=== PATIENT | male | born 1955 | race Hispanic/Latino ===

== ENCOUNTER 2019-06-13 13:39 | Inpatient (IN) | payer OTHER ==
[~2019-06-13] VITALS: Ht 180.3 cm; Wt 83.7 kg
[2019-06-13 14:03] LABS: BASOPHILS % (AUTO) 0.9 % (0.0-5.0); EOSINOPHILS % (AUTO) 0.8 % (0.0-8.0); HEMATOCRIT 34.1 % (42-54); LYMPHOCYTES % (AUTO) 14.8 % (21.0-51.0); MEAN CORPUSCULAR HEMOGLOBIN 36.8 pg (27.0-33.0); MEAN CORPUSCULAR HGB CONC 35.5 g/dL (32.0-36.0); MEAN CORPUSCULAR VOLUME 103.7 fL (79-99); MONOCYTES % (AUTO) 7.2 % (3.0-13.0); NEUTROPHILS % (AUTO) 76.3 % (40.0-77.0); PLATELET COUNT (AUTO) 291 K/uL (130-400); RED BLOOD CELL COUNT(AUTO) 3.29 MIL/uL (4.50-6.20); RED CELL DISTRIBUTION WIDTH 13.7 % (11.0-15.5); WHITE BLOOD COUNT (AUTO) 9.7 K/uL (4.8-10.8)
[2019-06-13 14:13] LABS: ALBUMIN 2.6 g/dL (3.5-5.0); BILIRUBIN,DIRECT 0.9 mg/dL (0.0-0.3); BILIRUBIN,TOTAL 1.8 mg/dL (0.2-1.0); CREATININE 3.6 mg/dL (0.5-1.5); POTASSIUM 4.3 mmol/L (3.5-5.1); TOTAL PROTEIN, SERUM 8.4 g/dL (6.0-8.3)
[2019-06-13 14:18] LABS: B-TYPE NATRIURETIC PEPTIDE 47 pg/mL (0-100)
[2019-06-13 15:18] LABS: INR 1.23 (0.85-1.15); PARTIAL THROMBOPLASTIN TIME 29.8 SEC (26.3-35.5); PROTHROMBIN TIME 12.9 SEC (9.6-11.6)
[2019-06-13] MEDS ORDERED: 1/2 NORMAL SALINE 1,000 ML IV SCH (15:30)
[2019-06-13] MEDS ORDERED: HYDROCORTISONE 25 MG SUPPOSITORY PR SCH (15:30)
[2019-06-13] MEDS: PANTOPRAZOLE 40 MG/VIAL IVP SCH (16:00)
[2019-06-13] MEDS ORDERED: HYDROCORTISONE 25 MG SUPPOSITORY PR ONE (16:08)
[2019-06-13] MEDS ORDERED: OCTREOTIDE ACETATE 500 MCG in SODIUM CHLORIDE 0.9% 97.5 ML IV PRN (18:30)
[2019-06-13] MEDS ORDERED: SODIUM CHLORIDE 0.9% 1000ML 1,000 ML IV ONE (19:31)
[2019-06-13 20:19] LABS: BASOPHILS % (AUTO) 1.2 % (0.0-5.0); HEMATOCRIT 32.9 % (42-54); MEAN CORPUSCULAR HEMOGLOBIN 35.9 pg (27.0-33.0); MEAN CORPUSCULAR HGB CONC 34.5 g/dL (32.0-36.0); MONOCYTES % (AUTO) 7.9 % (3.0-13.0); NEUTROPHILS % (AUTO) 71.9 % (40.0-77.0); PLATELET COUNT (AUTO) 265 K/uL (130-400); RED BLOOD CELL COUNT(AUTO) 3.16 MIL/uL (4.50-6.20); RED CELL DISTRIBUTION WIDTH 13.6 % (11.0-15.5); WHITE BLOOD COUNT (AUTO) 9.3 K/uL (4.8-10.8)
[2019-06-13 20:32] LABS: CREATININE 3.6 mg/dL (0.5-1.5); POTASSIUM 4.1 mmol/L (3.5-5.1)
[2019-06-13 20:33] LABS: INR 1.25 (0.85-1.15); PARTIAL THROMBOPLASTIN TIME 29.7 SEC (26.3-35.5); PROTHROMBIN TIME 13.1 SEC (9.6-11.6)
[2019-06-13 21:15] VITALS: BP 125/79
[2019-06-13] MEDS ORDERED: ONDANSETRON HCL 4 MG/2 ML VIAL IVP PRN (21:30)
[2019-06-13] MEDS ORDERED: MORPHINE SULFATE 4 MG/1ML SYG IV PRN (21:30)
[2019-06-13 23:00] VITALS: BP 111/69
[2019-06-14] VITALS (29 sets, daily range): BP systolic 10–134; BP diastolic 35–85
[2019-06-14] MEDS ORDERED: LISI10TA7 PO (02:05)
[2019-06-14] MEDS ORDERED: SPIR50TA5 PO (02:05)
[2019-06-14] MEDS ORDERED: GLIP5TAB11 PO (02:05)
[2019-06-14] MEDS ORDERED: MAGN400T51 PO (02:05)
[2019-06-14] MEDS ORDERED: FURO20TA4 PO (02:05)
[2019-06-14] MEDS ORDERED: HYDR25TA PO (02:05)
[2019-06-14 02:34] LABS: HEMATOCRIT 29.7 % (42-54)
[2019-06-14 02:46] LABS: APPEARANCE,URINE Clear (CLEAR); BILIRUBIN,URINE Negative (NEGATIVE); COLOR,URINE Dark Yellow (YELLOW); GLUCOSE, URINE (UA) Negative (NEGATIVE); KETONES,URINE Trace mg/dL (NEGATIVE); LEUKOCYTE ESTERASE ,URINE Trace (NEGATIVE); NITRATE,URINE Negative (NEGATIVE); OCCULT BLOOD,URINE Negative (NEGATIVE); PROTEIN,URINE Negative (NEGATIVE)
[2019-06-14 03:06] LABS: BACTERIA,URINE Rare /HPF (None Seen); RBC,URINE 0-1 /HPF (0-1)
[2019-06-14] MEDS ORDERED: ALBUMIN (HUMAN) 25% 100 ML IV ONE (06:30)
[2019-06-14] MEDS ORDERED: GLYCOPYRROLATE 0.2 MG/ML 5 ML VIAL ONE (06:33)
[2019-06-14] MEDS ORDERED: LIDOCAINE HCL-MPF 2% 5ML VIAL ONE (06:33)
[2019-06-14] MEDS ORDERED: PROPOFOL 10 MG/ML 20ML VIAL IV ONE (06:33)
[2019-06-14] MEDS ORDERED: PHENYLEPHRINE HCL 10 MG/ML 1ML VIAL IV ONE (06:43)
[2019-06-14 08:32] LABS: HEMATOCRIT 31.2 % (42-54)
[2019-06-14] MEDS ORDERED: ALBUMIN (HUMAN) 25% 100 ML IV SCH (09:45)
--- NOTE | 2019-06-14 09:58 | NUR ---
NOTIFIED DR QUINONEZ THAT THERE IS NO H&P AT PRESENT AND THAT PT CANNOT HAVE SCHEDULED PARACENTESIS UNTIL IT HAS BEEN DICTATED. HE STATED "OK WILL DO"
[2019-06-14] MEDS: MIDODRINE HCL 5 MG TABLET PO PRN (10:36)
[2019-06-14] MEDS: PANTOPRAZOLE 40 MG/VIAL IVP SCH ×2 (10:36→14:39)
[2019-06-14] MEDS ORDERED: FOLIC ACID/VITAMIN B COMP W-C 1 MG CAP/TAB PO SCH (13:30)
[2019-06-14] MEDS ORDERED: ALBUMIN (HUMAN) 25% 50 ML IV SCH (14:00)
[2019-06-14 14:43] LABS: HEMATOCRIT 31.1 % (42-54)
[2019-06-14 15:12] LABS: APPEARANCE,URINE Clear (CLEAR); BILIRUBIN,URINE Negative (NEGATIVE); COLOR,URINE Yellow (YELLOW); GLUCOSE, URINE (UA) Negative (NEGATIVE); KETONES,URINE Trace mg/dL (NEGATIVE); LEUKOCYTE ESTERASE ,URINE Small (NEGATIVE); NITRATE,URINE Negative (NEGATIVE); OCCULT BLOOD,URINE Negative (NEGATIVE); PROTEIN,URINE Negative (NEGATIVE)
--- NOTE | 2019-06-14 15:20 | NUR ---
U/S GD PARACENTESIS PROCEDURE PERFORMED BY DR. MAYO. PUNCTURE SITE RIGHT LOWER QUADRANT OF ABDOMEN AND PATIENT TOLERATED PROCEDURE WELL. TOTAL REMOVED 12.5 LITERS OF CLOUDY YELLOW FLUID. ALBUMIN PROTOCOL ORDERED. SPECIMEN SENT TO LAB. END OF PROCEDURE AT 1550. CATHETER REMOVED AND DRESSING APPLIED. NO BLEEDING NOTED. CALLED REPORT TO PAMELA PHAN RN. PATIENT TRANSFERRED TO ROOM 310 VIA W/C STABLE AT 1610. AAO X3 WITH NO C/O PAIN
[2019-06-14 15:30] LABS: BACTERIA,URINE Few /HPF (None Seen); RBC,URINE 0-1 /HPF (0-1); SQUAMOUS EPITHELIAL CELL,UR Rare /HPF (0-2)
[2019-06-14] MEDS ORDERED: ALBUMIN (HUMAN) 25% 400 ML IV SCH (17:21)
[2019-06-14 17:41] LABS: APPEARANCE BODY FLUID CLEAR (CLEAR); BODY FLUID RBC 219 /cu. mm.; BODY FLUID WBC 76 /cu. mm.; COLOR,BODY FLUID YELLOW (LT YELLOW); SPECIMENTYPE,BODY FLUID ASCITES; TOTAL VOLUME,BODY FLUID 12500 mL
[2019-06-14 18:08] LABS: BF LYMPHOCYTE 57 %; BF MESOTHELIAL 2 %; BF MONOCYTE 5 %; BF OTHER CELLS 2
[2019-06-14 20:15] LABS: HEMATOCRIT 29.7 % (42-54)
[2019-06-15] VITALS (9 sets, daily range): BP systolic 84–124; BP diastolic 50–68
[2019-06-15] MEDS: MIDODRINE HCL 5 MG TABLET PO PRN (04:57)
[2019-06-15 05:52] LABS: HEMATOCRIT 29.6 % (42-54); MEAN CORPUSCULAR HEMOGLOBIN 35.9 pg (27.0-33.0); MEAN CORPUSCULAR HGB CONC 34.3 g/dL (32.0-36.0); MEAN CORPUSCULAR VOLUME 104.8 fL (79-99); PLATELET COUNT (AUTO) 200 K/uL (130-400); RED BLOOD CELL COUNT(AUTO) 2.82 MIL/uL (4.50-6.20); RED CELL DISTRIBUTION WIDTH 13.9 % (11.0-15.5); WHITE BLOOD COUNT (AUTO) 7.2 K/uL (4.8-10.8)
[2019-06-15 06:19] LABS: ALBUMIN 3.2 g/dL (3.5-5.0); BILIRUBIN,TOTAL 2.4 mg/dL (0.2-1.0); CREATININE 3.2 mg/dL (0.5-1.5); POTASSIUM 4.6 mmol/L (3.5-5.1); TOTAL PROTEIN, SERUM 7.1 g/dL (6.0-8.3)
[2019-06-15 07:23] LABS: BASOPHILS % (MANUAL) 2 % (0-2); EOSINOPHILS % (MANUAL) 2 % (1-6); LYMPHOCYTES % (MANUAL) 18 % (22-44); MAN.DIFF COMMENT-IMPRESSION MANUAL DIFFERENTIAL; MONOCYTES % (MANUAL) 6 % (2-9); PLATELET MORPHOLOGY COMMENT ADEQUATE; SEGMENTED NEUTROPHILS % 72 % (40-70)
[2019-06-15 08:47] LABS: HEMATOCRIT 27.9 % (42-54)
[2019-06-15] MEDS: PANTOPRAZOLE 40 MG/VIAL IVP SCH (11:25)
[2019-06-15] MEDS: FOLIC ACID/VITAMIN B COMP W-C 1 MG CAP/TAB PO SCH (11:25)
--- NOTE | 2019-06-15 16:00 | NUR ---
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 LIVES W HIS SISTER, HAS A WKR AND AND SHOWER BENCH, IS PENDING SSI, GOES TO SEE DR. QUINONEZ WHEN HE CAN [facility] PENDING Addendum: 06/16/19 at 1826 by LINWOOD ROQUE RN CM Amended: Links added.
[2019-06-15 20:49] LABS: HEMATOCRIT 30.1 % (42-54)
[2019-06-16 04:00] VITALS: BP 107/62
[2019-06-16 05:59] LABS: BASOPHILS % (AUTO) 0.8 % (0.0-5.0); EOSINOPHILS % (AUTO) 2.6 % (0.0-8.0); HEMATOCRIT 32.1 % (42-54); LYMPHOCYTES % (AUTO) 15.5 % (21.0-51.0); MEAN CORPUSCULAR HGB CONC 34.4 g/dL (32.0-36.0); MEAN CORPUSCULAR VOLUME 104.8 fL (79-99); MONOCYTES % (AUTO) 11.3 % (3.0-13.0); NEUTROPHILS % (AUTO) 69.8 % (40.0-77.0); PLATELET COUNT (AUTO) 217 K/uL (130-400); RED BLOOD CELL COUNT(AUTO) 3.07 MIL/uL (4.50-6.20); RED CELL DISTRIBUTION WIDTH 13.9 % (11.0-15.5); WHITE BLOOD COUNT (AUTO) 7.4 K/uL (4.8-10.8)
[2019-06-16 06:18] LABS: ALBUMIN 3.1 g/dL (3.5-5.0); BILIRUBIN,TOTAL 2.3 mg/dL (0.2-1.0); CREATININE 3.5 mg/dL (0.5-1.5); POTASSIUM 4.2 mmol/L (3.5-5.1); TOTAL PROTEIN, SERUM 7.4 g/dL (6.0-8.3)
[2019-06-16 08:00] VITALS: BP 97/50
[2019-06-16] MEDS ORDERED: GLIPIZIDE 5 MG TABLET PO SCH (09:00)
[2019-06-16] MEDS ORDERED: HYDROCHLOROTHIAZIDE 25 MG TABLET PO SCH (09:00)
[2019-06-16] MEDS ORDERED: SPIRONOLACTONE 25 MG TAB PO SCH (09:00)
[2019-06-16] MEDS ORDERED: MAGNESIUM OXIDE 400 MG TABLET PO SCH (09:00)
[2019-06-16] MEDS: FOLIC ACID/VITAMIN B COMP W-C 1 MG CAP/TAB PO SCH (09:24)
[2019-06-16 11:00] VITALS: BP 85/49
--- NOTE | 2019-06-16 15:32 | NUR ---
PT CONTINUES TO WAIT FOR HIS SISTER TO HAVE DISCHARGE INSTRUCTIONS GIVEN PER PT/FAMILY REQUEST. PT REPORTS HIS SISTER WILL BE PICKING HIM UP HE HAS ALREADY CALLED HER. WILL CONTINUE TO MONITOR.
[2019-06-17] MEDS ORDERED: PANTOPRAZOLE SODIUM 40 MG TABLET.DR PO SCH (08:18)
== END 2019-06-16 16:20 | disposition home or self-care (01) | DRG 377 ==
LOC: EDH 13:39 → EDHIP 13:40 → 3BH 20:50
PROVIDERS: ADMIT Internal Medicine; ATTEND Internal Medicine
PROC: 0W9G3ZZ Drainage of Peritoneal Cavity, Percutaneous Approach (ICD-10-PCS; principal; 2019-06-14)
PROC: 0DJ08ZZ Inspection of Upper Intestinal Tract, Via Natural or Artificial Opening Endoscopic (ICD-10-PCS; 2019-06-14)
DX: K29.71 Gastritis, unspecified, with bleeding (principal); K76.7 Hepatorenal syndrome; R18.8 Other ascites; N17.9 Acute kidney failure, unspecified; E87.1 Hypo-osmolality and hyponatremia; R64 Cachexia; K74.60 Unspecified cirrhosis of liver; I85.00 Esophageal varices without bleeding; E88.09 Other disorders of plasma-protein metabolism, not elsewhere classified; I95.9 Hypotension, unspecified; J44.9 Chronic obstructive pulmonary disease, unspecified; K31.89 Other diseases of stomach and duodenum; D64.9 Anemia, unspecified; E11.21 Type 2 diabetes mellitus with diabetic nephropathy; I10 Essential (primary) hypertension; Z68.25 Body mass index [BMI] 25.0-25.9, adult
CPT/HCPCS: 36415; 43235; 49083; 71045; 71250; 74150; 76705; 80048; 80053; 80076; 81001; 82042; 82270; 82550; 82948; 83880; 83935; 84157; 84300; 84484; 85014; 85018; 85025; 85610; 85730; 86850; 86900; 86901; 87071; 87205; 88108; 88305; 89051; 93005; 96365; 97039; C9113; G0378; J2354; J2370; J2405; J2704; J3490; J7030; P9046

== ENCOUNTER 2019-06-20 22:43 | Inpatient (IN) | payer OTHER ==
[~2019-06-20] VITALS: Ht 172.7 cm; Wt 100.0 kg
[~2019-06-20 22:43] MED LIST: GLIP5TAB11 PO; HYDR25TA PO; MAGN400T51 PO; ROCURONIUM BROMIDE 10MG/1ML 5ML VL IV ONE
[2019-06-20 23:08] LABS: BASOPHILS % (AUTO) 1.1 % (0.0-5.0); EOSINOPHILS % (AUTO) 0.4 % (0.0-8.0); HEMATOCRIT 34.9 % (42-54); MEAN CORPUSCULAR HEMOGLOBIN 35.6 pg (27.0-33.0); MEAN CORPUSCULAR HGB CONC 34.7 g/dL (32.0-36.0); MEAN CORPUSCULAR VOLUME 102.7 fL (79-99); MONOCYTES % (AUTO) 7.7 % (3.0-13.0); NEUTROPHILS % (AUTO) 80.8 % (40.0-77.0); NUCLEATED RED BLOOD CELLS 0.1 % (0.0-0.19); PLATELET COUNT (AUTO) 289 K/uL (130-400); RED CELL DISTRIBUTION WIDTH 14.2 % (11.0-15.5); WHITE BLOOD COUNT (AUTO) 12.9 K/uL (4.8-10.8)
[2019-06-20 23:26] LABS: ALBUMIN 2.9 g/dL (3.5-5.0); BILIRUBIN,DIRECT 1.3 mg/dL (0.0-0.3); BILIRUBIN,TOTAL 2.7 mg/dL (0.2-1.0); INR 1.49 (0.85-1.15); PARTIAL THROMBOPLASTIN TIME 32.1 SEC (26.3-35.5); POTASSIUM 5.6 mmol/L (3.5-5.1); PROTHROMBIN TIME 15.4 SEC (9.6-11.6); TOTAL PROTEIN, SERUM 8.1 g/dL (6.0-8.3)
[2019-06-20 23:31] LABS: APPEARANCE,URINE Cloudy (CLEAR); BILIRUBIN,URINE Moderate (NEGATIVE); COLOR,URINE Dark Yellow (YELLOW); GLUCOSE, URINE (UA) Negative (NEGATIVE); KETONES,URINE Trace mg/dL (NEGATIVE); LEUKOCYTE ESTERASE ,URINE Small (NEGATIVE); NITRATE,URINE Positive (NEGATIVE); OCCULT BLOOD,URINE Negative (NEGATIVE); PROTEIN,URINE POS 1+ mg/dL (NEGATIVE)
[2019-06-20 23:33] LABS: B-TYPE NATRIURETIC PEPTIDE 26 pg/mL (0-100)
[2019-06-20 23:40] LABS: AMORPHOUS SEDIMENT,UR Moderate /LPF (None Seen); BACTERIA,URINE Rare /HPF (None Seen); MUCUS,URINE Moderate LPF (None Seen); RBC,URINE 0-1 /HPF (0-1); SQUAMOUS EPITHELIAL CELL,UR Few /HPF (0-2)
[2019-06-21] VITALS (26 sets, daily range): BP systolic 81–120; BP diastolic 42–75
[2019-06-21 00:49] LABS: ABG OXYGEN SATURATION 89.9 % (95.0-99.0); BASE EXCESS,VENOUS BLOOD GAS -6.1 (-2.0-3.0); HCO3,VENOUS BLOOD GAS 14.7 (21.0-28.0); PCO2,VENOUS BLOOD GAS 20 (35-48); PH,VENOUS BLOOD GAS 7.482 (7.350-7.450)
[2019-06-21] MEDS ORDERED: LACTULOSE 20 GM/30 ML UDCUP ONE (01:26)
[2019-06-21] MEDS ORDERED: LEVOFLOXACIN 750 MG/D5W 150 ML 150 ML ONE (02:30)
[2019-06-21] MEDS: LACTULOSE 20 GM/30 ML UDCUP PO SCH ×4 (04:00→17:37)
[2019-06-21] MEDS ORDERED: SODIUM CHLORIDE 0.9% 1000ML 1,000 ML IV ONE ×3 (04:49→06:00)
[2019-06-21 05:06] LABS: ABG BASE EXCESS -8.4 mmol/L (-2.0-3.0); ABG HCO3 11.4 mmol/L (21.0-28.0); ABG OXYGEN SATURATION 98.5 % (95.0-99.0); ABG PCO2 < 17 mmHg (35-48)
[2019-06-21 05:12] LABS: CREATININE 8.3 mg/dL (0.5-1.5); POTASSIUM 6.2 mmol/L (3.5-5.1)
[2019-06-21] MEDS ORDERED: SODIUM BICARB 50MEQ 50ML VIAL ONE ×3 (05:18→05:40)
[2019-06-21] MEDS ORDERED: ZOSYN 3.375GM+NS 50ML 50 ML IV ONE (05:37)
[2019-06-21] MEDS ORDERED: MIDAZOLAM HCL 5 MG/ML 2ML VIAL IV ONE (05:38)
[2019-06-21] MEDS ORDERED: ONDANSETRON HCL 4 MG/2 ML VIAL ONE (05:42)
[2019-06-21] MEDS ORDERED: ALBUTEROL SULFATE 0.083% 2.5 MG/3 ML INH IH ONE (06:04)
[2019-06-21] MEDS ORDERED: SODIUM POLYSTYRENE SULFONATE 15 GM/60 ML ML ONE (06:09)
[2019-06-21] MEDS ORDERED: CALCIUM GLUCONATE 1 GM/10 ML VIAL IV ONE (06:09)
[2019-06-21] MEDS ORDERED: INSULIN HUMULIN R 100 UNIT/ML 3ML ONE (06:50)
[2019-06-21] MEDS ORDERED: DEXTROSE 50%-WATER 50 ML DISP.SYRIN IV ONE (06:50)
[2019-06-21 07:59] LABS: BASOPHILS % (AUTO) 0.2 % (0.0-5.0); HEMATOCRIT 30.4 % (42-54); LYMPHOCYTES % (AUTO) 5.8 % (21.0-51.0); MEAN CORPUSCULAR HEMOGLOBIN 36.1 pg (27.0-33.0); MEAN CORPUSCULAR HGB CONC 34.8 g/dL (32.0-36.0); MEAN CORPUSCULAR VOLUME 103.6 fL (79-99); PLATELET COUNT (AUTO) 184 K/uL (130-400); RED BLOOD CELL COUNT(AUTO) 2.93 MIL/uL (4.50-6.20); RED CELL DISTRIBUTION WIDTH 14.3 % (11.0-15.5); WHITE BLOOD COUNT (AUTO) 10.9 K/uL (4.8-10.8)
[2019-06-21 08:07] LABS: ABG BASE EXCESS -5.3 mmol/L (-2.0-3.0); ABG HCO3 17.2 mmol/L (21.0-28.0); ABG OXYGEN SATURATION 96.7 % (95.0-99.0); ABG PCO2 27 mmHg (35-48)
[2019-06-21 08:10] LABS: POTASSIUM 4.8 mmol/L (3.5-5.1)
[2019-06-21 08:11] LABS: CREATININE 7.6 mg/dL (0.5-1.5); MAGNESIUM 2.4 mg/dL (1.80-2.40)
[2019-06-21] MEDS ORDERED: PROPOFOL 1000 MG/100 ML 100 ML IV ONE (08:44)
[2019-06-21] MEDS ORDERED: SODIUM BICARB 50MEQ 50ML VIAL IV SCH (09:15)
[2019-06-21] MEDS ORDERED: PROPOFOL 1000 MG/100 ML IV PRN (09:15)
[2019-06-21] MEDS: SYRING IVP SCH ×2 (09:34→22:59)
[2019-06-21] MEDS: SODIUM BICARB 8.4% IVP SCH ×2 (09:34→22:59)
[2019-06-21] MEDS: SODIUM CHLORIDE 0.9% IVP SCH ×2 (09:34→22:59)
[2019-06-21] MEDS ORDERED: SPIR50TA5 PO (09:53)
[2019-06-21] MEDS ORDERED: PANT40TA PO (09:53)
[2019-06-21] MEDS ORDERED: MIDO10TA PO (09:53)
[2019-06-21] MEDS: CEFTRIAXONE SODIUM 1 GM IVP SCH (09:57)
[2019-06-21] MEDS: SODIUM CHLORIDE 0.9% 1000ML 1,000 ML IV SCH ×2 (09:58→11:07)
[2019-06-21] MEDS: PROPOFOL 1000 MG/100 ML 100 ML IV PRN ×2 (15:00→22:34)
[2019-06-21] MEDS: INSULIN HUMULIN R 100 UNIT/ML 3ML SQ SCH (17:17)
--- NOTE | 2019-06-21 17:37 | NUR ---
cm note met with patients sister kaylynn and sister gisele, pt intubated, pt resides with kaylynn, pt normally able to ambulate with cane or walker, no dme. no services.bathes self. pt goes to see Dr wasserman private pay and pays for meds. did provide nati info, and to followup with Nito. dcp back home. if pt stabilizes. Addendum: 06/21/19 at 1739 by LEANA MORA CM Amended: Links added.
[2019-06-21] MEDS: MIDODRINE HCL 5 MG TABLET PO SCH (22:40)
[2019-06-21] MEDS: ZOSYN 3.375GM+NS 50ML 50 ML IV SCH (22:40)
[2019-06-22] VITALS (34 sets, daily range): BP systolic 100–136; BP diastolic 36–67
[2019-06-22 03:14] LABS: HEMATOCRIT 27.3 % (42-54); MEAN CORPUSCULAR HGB CONC 37.2 g/dL (32.0-36.0); NUCLEATED RED BLOOD CELLS 0.1 % (0.0-0.19); PLATELET COUNT (AUTO) 198 K/uL (130-400); RED BLOOD CELL COUNT(AUTO) 2.67 MIL/uL (4.50-6.20); RED CELL DISTRIBUTION WIDTH 13.8 % (11.0-15.5); WHITE BLOOD COUNT (AUTO) 13.5 K/uL (4.8-10.8)
[2019-06-22 03:22] LABS: CREATININE 6.9 mg/dL (0.5-1.5); MAGNESIUM 2.2 mg/dL (1.80-2.40); PHOSPHORUS 5.4 mg/dL (2.5-4.9)
[2019-06-22] MEDS: PROPOFOL 1000 MG/100 ML 100 ML IV PRN ×3 (03:58→18:32)
[2019-06-22] MEDS: SODIUM BICARB 8.4% IVP SCH ×3 (04:27→16:25)
[2019-06-22] MEDS: SYRING IVP SCH ×3 (04:27→16:25)
[2019-06-22] MEDS: SODIUM CHLORIDE 0.9% IVP SCH ×3 (04:27→16:25)
[2019-06-22] MEDS: LACTULOSE 20 GM/30 ML UDCUP PO SCH ×7 (06:00→21:18)
[2019-06-22] MEDS: INSULIN HUMULIN R 100 UNIT/ML 3ML SQ SCH ×4 (06:00→18:39)
[2019-06-22] MEDS: CEFTRIAXONE SODIUM 1 GM IVP SCH (08:30)
[2019-06-22] MEDS: ZOSYN 3.375GM+NS 50ML 50 ML IV SCH ×2 (08:30→21:19)
[2019-06-22] MEDS: MIDODRINE HCL 5 MG TABLET PO SCH ×3 (08:30→21:19)
[2019-06-22] MEDS: ALBUMIN (HUMAN) 25% 50 ML IV SCH (14:17)
--- NOTE | 2019-06-22 15:45 | NUR ---
RD NOTIFICATION DX: ANEMIA, METABOLIC ENCEPHALOPATHY, LIVER CIRRHOSIS. DIET: NPO. NG TUBE IN PLACE FOR SUCTION. SKIN INTACT, NO EDEMA. PT SLEEPING DURING TIME OF VISIT. CONTINUES WITH WORSENING ALTERED MENTAL STATUS. PT CONDITION IS CURRENTLY ON THE VENTILATOR. PT A DNR AND IN CRITICAL CONDITION. PT HAVING HIGH RESIDUALS OF 120 TO 200MLS WITH MEDS ONLY PER NURSE. RD RECOMMENDS TO CONSULT GI. CONTINUE NPO. CONSIDER ALTERNATE MEANS OF NUTRITION. PLEASE NOTIFY RD IF ANYTHING CHANGES OR IF ANY RECOMMENDATIONS ARE NEEDED. RD WILL CONTINUE TO MONITOR AND FOLLOW UP NEEDED. THANK YOU. Addendum: 06/22/19 at [address] Amended: Links added.
[2019-06-23] VITALS (22 sets, daily range): BP systolic 90–136; BP diastolic 45–78
[2019-06-23] MEDS: PROPOFOL 1000 MG/100 ML 100 ML IV PRN (00:10)
[2019-06-23] MEDS: ALBUMIN (HUMAN) 25% 50 ML IV SCH ×4 (00:15→21:45)
[2019-06-23] MEDS: LACTULOSE 20 GM/30 ML UDCUP PO SCH ×7 (00:15→23:35)
[2019-06-23] MEDS: INSULIN HUMULIN R 100 UNIT/ML 3ML SQ SCH ×4 (00:52→18:13)
[2019-06-23] MEDS: SODIUM CHLORIDE 0.9% IVP SCH ×2 (02:19→11:42)
[2019-06-23] MEDS: SYRING IVP SCH ×2 (02:19→11:42)
[2019-06-23] MEDS: SODIUM BICARB 8.4% IVP SCH ×2 (02:19→11:42)
[2019-06-23 03:52] LABS: HEMATOCRIT 28.8 % (42-54); MEAN CORPUSCULAR HEMOGLOBIN 35.7 pg (27.0-33.0); MEAN CORPUSCULAR HGB CONC 34.5 g/dL (32.0-36.0); MEAN CORPUSCULAR VOLUME 103.6 fL (79-99); NUCLEATED RED BLOOD CELLS 0.1 % (0.0-0.19); PLATELET COUNT (AUTO) 165 K/uL (130-400); RED BLOOD CELL COUNT(AUTO) 2.78 MIL/uL (4.50-6.20); RED CELL DISTRIBUTION WIDTH 14.1 % (11.0-15.5); WHITE BLOOD COUNT (AUTO) 12.8 K/uL (4.8-10.8)
[2019-06-23 04:18] LABS: ALBUMIN 2.4 g/dL (3.5-5.0); BILIRUBIN,TOTAL 1.5 mg/dL (0.2-1.0); CREATININE 7.2 mg/dL (0.5-1.5)
[2019-06-23 04:21] LABS: POTASSIUM 2.4 mmol/L (3.5-5.1)
[2019-06-23] MEDS ORDERED: POTASSIUM CHLORIDE 10% ELIXIR 20 MEQ/15 ML UDCUP PO SCH ×3 (06:45→20:15)
--- NOTE | 2019-06-23 07:00 | NUR ---
RECEIVED CALL BACK FROM DR. LAMAR. WAS PAGED BY NIGHT NURSE TO REPORT K LEVEL. I INFORMED HIM I MONTSE RN, NIGHT NURSE, SPOKE WITH DR. BURT DURING ROUNDS THIS MORNING AND RECEIVED ORDERS FOR POTASSIUM [address] LAMAR INSTRUCTED TO CONTINUE WITH ORDER AND RECHECK POTASSIUM, IF LESS THAN 3, GIVE ANOTHER 40 MEQ.
[2019-06-23] MEDS: ZOSYN 3.375GM+NS 50ML 50 ML IV SCH ×2 (08:08→20:23)
[2019-06-23] MEDS: CEFTRIAXONE SODIUM 1 GM IVP SCH (08:08)
[2019-06-23] MEDS: MIDODRINE HCL 5 MG TABLET PO SCH ×3 (08:08→20:24)
--- NOTE | 2019-06-23 10:52 | NUR ---
ROUNDS RAMONA GROVE SORT SUPERVISOR IN TO SEE PATIENT. SHE SPOKE WITH FAMILY PRESENT AND DISCUSSED POC. WILL CONT TO MONITOR.
--- NOTE | 2019-06-23 12:23 | NUR ---
ROUNDS DR. LAMAR IN TO SEE PATIENT. MD REVIEWED LABS, NEW ORDERS RECEIVED. INSTRUCTED TO CONTINUE WITH DIETARY RECOMMENDATIONS. MD SPOKE WITH FAMILY AND TOLD THEM PATIENT WOULD NOT TOLERATE DIALYSIS. CONT WITH POC.
[2019-06-23] MEDS: DEXTROSE 5%-WATER 1,000 ML IV SCH (12:32)
[2019-06-23 12:39] LABS: INR 1.68 (0.85-1.15); PARTIAL THROMBOPLASTIN TIME 33.1 SEC (26.3-35.5); POTASSIUM 2.3 mmol/L (3.5-5.1); PROTHROMBIN TIME 17.3 SEC (9.6-11.6)
--- NOTE | 2019-06-23 13:38 | NUR ---
ROUNDS DR. DUNHAM IN TO SEE PATIENT. ROUNDED WITH RAMONA SANTIZO. UPDATED ON ORDERS RECEIVED FROM DR. LAMAR. NEW ORDERS FROM DR. DUNHAM TO BE CARRIED OUT.
[2019-06-23] MEDS ORDERED: MAGNESIUM 2GM PREMIX 50ML 50 ML IV PRN (13:45)
--- NOTE | 2019-06-23 14:35 | NUR ---
TUBE FEEDING INITIATED PER ORDERS.
--- NOTE | 2019-06-23 15:13 | NUR ---
RD FOLLOW UP Notification for Tube Feeding Recommendations received. Tube Feeding Recommendation: Continuous, Nepro initiated at 15mls/hr for first 5 hours. Increase by 5mL every 5 hours to goal of 45mLs/hr to provide 1944kcal/87 gm protein. Flushes: 300mL Q6Hrs. Recommendations placed in Pt chart. RN notified. Pt LBM 06/23/19. Pt monitored labs: Hgb 9.9, Hct 28.8, Na 161, K 2.4, Cl 116, BUN 88, Cr 7.2, GFR 8, Glu 181, T. bili 1.5, Alb 2.4. RD to continue to monitor. Please notify RD as additional nutrition concerns arise. Thank you. Addendum: 06/23/19 at [address] Amended: Links added.
--- NOTE | 2019-06-23 16:08 | NUR ---
PATIENT WAKING UP, YET NOT FOLLOWING COMMANDS. BILATERAL HAND MITTENS ON FOR PROTECTION, YET PATIENT WAVING ARMS AND TRYING TO LIFT UPPER BODY IN BED. PT AT HIGH RISK FOR INJURY AND REMOVAL OF ETT/NGT. PATIENT PLACED BACK ON SEDATION PER ORDERS. WILL CONT TO MONITOR CLOSELY.
[2019-06-23 18:31] LABS: MAGNESIUM 2.2 mg/dL (1.80-2.40)
[2019-06-23 18:33] LABS: POTASSIUM 2.1 mmol/L (3.5-5.1)
[2019-06-23] MEDS: LIDOCAINE HCL-MPF 1% 2ML VIAL IV PRN ×2 (18:37→20:33)
[2019-06-23] MEDS: POTASSIUM CHLORIDE 10MEQ/100ML 100 ML IV PRN ×3 (18:39→23:35)
[2019-06-24] VITALS (26 sets, daily range): BP systolic 92–124; BP diastolic 38–83
[2019-06-24] MEDS: INSULIN HUMULIN R 100 UNIT/ML 3ML SQ SCH ×4 (00:29→17:55)
[2019-06-24 00:34] LABS: MAGNESIUM 2.2 mg/dL (1.80-2.40)
[2019-06-24 00:50] LABS: POTASSIUM 2.3 mmol/L (3.5-5.1)
[2019-06-24] MEDS: DEXTROSE 5%-WATER 1,000 ML IV SCH (01:13)
[2019-06-24] MEDS ORDERED: POTASSIUM CHLORIDE 20 MEQ ERTAB PO PRN (01:15)
[2019-06-24] MEDS: POTASSIUM CHLORIDE 10MEQ/100ML 100 ML IV PRN ×11 (01:17→22:56)
[2019-06-24] MEDS: LIDOCAINE HCL-MPF 1% 2ML VIAL IV PRN ×2 (01:18→08:41)
[2019-06-24] MEDS: PROPOFOL 1000 MG/100 ML 100 ML IV PRN (02:55)
[2019-06-24 03:46] LABS: ABG BASE EXCESS 6.5 mmol/L (-2.0-3.0); ABG HCO3 26.6 mmol/L (21.0-28.0); ABG OXYGEN SATURATION 98.7 % (95.0-99.0); ABG PCO2 27 mmHg (35-48)
[2019-06-24] MEDS: LACTULOSE 20 GM/30 ML UDCUP PO SCH ×3 (05:17→23:42)
[2019-06-24] MEDS: ALBUMIN (HUMAN) 25% 50 ML IV SCH ×3 (05:17→19:34)
[2019-06-24 06:23] LABS: BASOPHILS % (AUTO) 0.1 % (0.0-5.0); EOSINOPHILS % (AUTO) 0.3 % (0.0-8.0); HEMATOCRIT 28.2 % (42-54); LYMPHOCYTES % (AUTO) 11.4 % (21.0-51.0); MEAN CORPUSCULAR HEMOGLOBIN 36.7 pg (27.0-33.0); MEAN CORPUSCULAR HGB CONC 34.5 g/dL (32.0-36.0); MEAN CORPUSCULAR VOLUME 106.3 fL (79-99); MONOCYTES % (AUTO) 3.5 % (3.0-13.0); NEUTROPHILS % (AUTO) 84.7 % (40.0-77.0); NUCLEATED RED BLOOD CELLS 0.7 % (0.0-0.19); PLATELET COUNT (AUTO) 120 K/uL (130-400); RED BLOOD CELL COUNT(AUTO) 2.65 MIL/uL (4.50-6.20); RED CELL DISTRIBUTION WIDTH 14.4 % (11.0-15.5); WHITE BLOOD COUNT (AUTO) 13.2 K/uL (4.8-10.8)
[2019-06-24 06:34] LABS: CREATININE 7.2 mg/dL (0.5-1.5); MAGNESIUM 2.2 mg/dL (1.80-2.40); PHOSPHORUS 2.7 mg/dL (2.5-4.9)
[2019-06-24 06:39] LABS: POTASSIUM 2.5 mmol/L (3.5-5.1)
[2019-06-24] MEDS: MIDODRINE HCL 5 MG TABLET PO SCH ×3 (08:38→20:44)
[2019-06-24] MEDS: FAMOTIDINE/PF 20 MG/2 ML VIAL IV SCH (08:38)
[2019-06-24] MEDS: CEFTRIAXONE SODIUM 1 GM IVP SCH (08:38)
[2019-06-24] MEDS: ZOSYN 3.375GM+NS 50ML 50 ML IV SCH ×2 (08:38→20:07)
[2019-06-24] MEDS ORDERED: PANTOPRAZOLE 40 MG/VIAL IVP SCH (09:00)
[2019-06-24] MEDS: DEXMEDETOMIDINE HCL 400 MCG in SODIUM CHLORIDE 0.9% 100 ML IV SCH (09:46)
--- NOTE | 2019-06-24 09:50 | NUR ---
RAMONA GROVE PERFORMANCE IMPROVEMENT CONSULTANT IN TO SEE PATIENT. UPDATED ON STATUS AND LABS. NEW ORDERS RECEIVED TO BE CARRIED OUT. WILL CONT TO MONITOR CLOSELY.
[2019-06-24 12:31] LABS: MAGNESIUM 2.1 mg/dL (1.80-2.40)
[2019-06-24 12:34] LABS: POTASSIUM 2.3 mmol/L (3.5-5.1)
[2019-06-24] MEDS: RIFAXIMIN 550 MG TABLET PO SCH ×2 (14:36→20:44)
--- NOTE | 2019-06-24 15:37 | NUR ---
ORDER FOR USE OF PICC LINE OBTAINED FROM RAMONA SANTIZO.
--- NOTE | 2019-06-24 16:03 | NUR ---
RD NOTIFICATION/ FOLLOW UP DX: ANEMIA, METABOLIC ENCEPHALOPATHY, LIVER CIRRHOSIS. LBM: 06/24; DIARRHEA. DIET: NEPRO AT 30MLS/HR. FLUSH AT 300MLS/HR. PT REMAINS ON MECHANICAL VENTILATION. TOLERATING TF WELL, HOWEVER PT NOT ON DIALYSIS. RD RECOMMENDS TO CHANGE FEEDING TO SUPLENA AT 15MLS/HR. INCREASE BY 5MLS EVERY 5 HOURS TOLERATED. GOAL RATE IS 50MLS/HR. FORMULA PROVIDES: 2154KCAL/D, 54GRAM PROTEIN, 886MLS/D. FLUSH AT 280MLS Q6. TOTAL WATER IS 2206MLS/HR. NEW RECOMMENDATIONS LEFT IN PT CHART. RN NOTIFIED. RD WILL CONTINUE TO MONITOR TOLERANCE TO TF. MONITOR LABS: WBC 13.2, Na 163, K 2.5, Cl 117, BUN 79, CRE 7.2, GFR 8, BG 240, ALB 2.4. RD WILL CONTINUE TO MONITOR AND FOLLOW UP NEEDED. Addendum: 06/24/19 at [address] Amended: Links added.
--- NOTE | 2019-06-24 17:00 | NUR ---
PRECEDEX TURNED OFF D/T BRADYCARDIA 30s.
[2019-06-24] MEDS ORDERED: DEXTROSE 5%-WATER 0 ML IV ONE (17:12)
[2019-06-24] MEDS: POTASSIUM CHLORIDE 20 MEQ in DEXTROSE 5%-WATER 1,000 ML IV SCH (17:45)
[2019-06-24 18:41] LABS: POTASSIUM 2.3 mmol/L (3.5-5.1)
[2019-06-24] MEDS ORDERED: MIDAZOLAM HCL 1 MG/ML 2ML VIAL IVP PRN (19:15)
[2019-06-24] MEDS ORDERED: LACTULOSE 20 GM/30 ML UDCUP PO SCH (21:00)
[2019-06-25] VITALS (24 sets, daily range): BP systolic 73–124; BP diastolic 32–86
[2019-06-25 00:49] LABS: MAGNESIUM 1.9 mg/dL (1.80-2.40)
[2019-06-25] MEDS: POTASSIUM CHLORIDE 10MEQ/100ML 100 ML IV PRN ×4 (01:31→19:33)
[2019-06-25 04:24] LABS: ABG BASE EXCESS 3.3 mmol/L (-2.0-3.0); ABG HCO3 24.1 mmol/L (21.0-28.0); ABG PCO2 27 mmHg (35-48)
[2019-06-25] MEDS: INSULIN HUMULIN R 100 UNIT/ML 3ML SQ SCH ×4 (06:11→18:00)
[2019-06-25 06:29] LABS: HEMATOCRIT 30.6 % (42-54); MEAN CORPUSCULAR HEMOGLOBIN 35.6 pg (27.0-33.0); MEAN CORPUSCULAR HGB CONC 33.3 g/dL (32.0-36.0); NUCLEATED RED BLOOD CELLS 0.6 % (0.0-0.19); PLATELET COUNT (AUTO) 80 K/uL (130-400); RED BLOOD CELL COUNT(AUTO) 2.86 MIL/uL (4.50-6.20); RED CELL DISTRIBUTION WIDTH 14.6 % (11.0-15.5); WHITE BLOOD COUNT (AUTO) 16.2 K/uL (4.8-10.8)
[2019-06-25 06:34] LABS: ALBUMIN 2.3 g/dL (3.5-5.0); BILIRUBIN,TOTAL 1.8 mg/dL (0.2-1.0); CREATININE 7.5 mg/dL (0.5-1.5); PHOSPHORUS 4.2 mg/dL (2.5-4.9); TOTAL PROTEIN, SERUM 6.6 g/dL (6.0-8.3)
[2019-06-25 06:36] LABS: INR 1.57 (0.85-1.15); PARTIAL THROMBOPLASTIN TIME 36.6 SEC (26.3-35.5); PROTHROMBIN TIME 16.2 SEC (9.6-11.6)
[2019-06-25] MEDS: POTASSIUM CHLORIDE 10% ELIXIR 20 MEQ/15 ML UDCUP PO PRN (06:42)
[2019-06-25] MEDS: DEXMEDETOMIDINE HCL 400 MCG in SODIUM CHLORIDE 0.9% 100 ML IV SCH (06:45)
[2019-06-25] MEDS: POTASSIUM CHLORIDE 20 MEQ in DEXTROSE 5%-WATER 1,000 ML IV SCH ×2 (08:07→22:37)
[2019-06-25] MEDS: RIFAXIMIN 550 MG TABLET PO SCH ×2 (08:45→21:01)
[2019-06-25] MEDS: ZOSYN 3.375GM+NS 50ML 50 ML IV SCH ×2 (08:45→21:01)
[2019-06-25] MEDS: FAMOTIDINE/PF 20 MG/2 ML VIAL IV SCH (08:45)
[2019-06-25] MEDS: MIDODRINE HCL 5 MG TABLET PO SCH ×3 (08:46→21:01)
--- NOTE | 2019-06-25 08:50 | NUR ---
PT WAS PLACED ON CPAP 5/5 AND WILL OBTAIN ABG'S AFTER AN HOUR RAMONA GROVE PI/SENIOR RESEARCH ASSOCIATE HERE AND ORDERS NOTED.
--- NOTE | 2019-06-25 10:00 | NUR ---
SISTERS HERE AND WERE ADVISED OF PT'S WEANING OFF THE VENT AND WILL OBTAIN ABG'S.
[2019-06-25 10:16] LABS: ABG HCO3 26.8 mmol/L (21.0-28.0); ABG OXYGEN SATURATION 98.7 % (95.0-99.0); ABG PCO2 38 mmHg (35-48)
--- NOTE | 2019-06-25 11:49 | NUR ---
CHART CHECK COMPLETED. Pt IS A 63 YEAR OLD MALE ADMITTED SECONDARY TO ANEMIA, METABOLIC ENCEPHALOPATHY, AND LIVER CIRRHOSIS. Pt CURRENTLY INTUBATED. Pt HAS A PAST MEDICAL HISTORY SIGNIFICANT FOR CIRRHOSIS,HEPATORENAL SYNDROME, HYPERTENSION, DM, HYPOALBUMINEMIA, HYPONATREMIA, ANEMIA. Pt WITH POSSIBLE EXTUBATION IN THE COMING DAYS. SKILLED SPEECH THERAPY IS RECOMMENDED 24 HOURS POST EXTUBATION. Addendum: 06/25/19 at 1201 by ALEX WALKER [facility] Amended: Links added.
[2019-06-25] MEDS ORDERED: POTASSIUM CHLORIDE 20 MEQ in DEXTROSE 5%-WATER 1,000 ML IV SCH (12:30)
[2019-06-25 12:35] LABS: MAGNESIUM 1.7 mg/dL (1.80-2.40); POTASSIUM 5.5 mmol/L (3.5-5.1)
[2019-06-25] MEDS: LACTULOSE 20 GM/30 ML UDCUP PO SCH (13:13)
[2019-06-25] MEDS: ALBUMIN (HUMAN) 25% 50 ML IV SCH ×2 (13:14→21:02)
--- NOTE | 2019-06-25 13:45 | NUR ---
PT WAS EXTUBATED AND PLACED ON AEROSOL MASK AT 40%. PT WANTS WATER AND HIS MITTENS OFF.
--- NOTE | 2019-06-25 13:48 | NUR ---
RD NOTIFICATION/ FOLLOW UP PT ON SUPLENA AND REACHED RATE OF 30MLS/HR. PT TOLERATING TF WELL PER NURSE. TF STOPPED THIS MORNING DUE TO POSSIBLE EXTUBATION TODAY. IF FAILS, RD RECOMMENDS TO RESUME TF RECOMMENDATIONS WHEN MEDICALLY FEASIBLE VIA NG TUBE. OKAY TO INCREASE FLUSHES TO 300MLS/HR Q6 IF NEEDED. RD WILL CONTINUE TO MONITOR AND FOLLOW UP NEEDED. THANK YOU. Addendum: 06/25/19 at [address] Amended: Links added.
--- NOTE | 2019-06-25 16:30 | NUR ---
SISTERS HERE AND WERE ADVISED OF PT'S EXTUBATION AND UNABLE TO GIVE HIM WATER AND WERE ADVISED NOT TO GIVE HIM ANY WATER AND HE WAS NOT TO TALK FOR AT LEAST 2 HOURS, SISTERS VERBALIZED UNDERSTANDING.
[2019-06-25 19:13] LABS: MAGNESIUM 2.3 mg/dL (1.80-2.40); POTASSIUM 3.6 mmol/L (3.5-5.1)
--- NOTE | 2019-06-25 20:30 | NUR ---
Patient alert and following commands but agitated at this time. NGT pulled out by patient and gloves thrown off the bed. VSS and nursing bedside swallow test passed. Able to give PO meds with applesauce.
[2019-06-25] MEDS: DEXTROSE 5%-WATER 1,000 ML IV SCH (23:15)
[2019-06-25] MEDS ORDERED: DEXTROSE 5%-WATER 1,000 ML IV ONE (23:22)
--- NOTE | 2019-06-25 23:32 | NUR ---
D5W started Lisa Monreal RENOVATION PLANT SUPERVISOR called and updated on patient status. made aware that D5W/20KCL was out of stock and unavailable at this time. Medication changed to D5W and to watch potassium levels. RENOVATION PLANT SUPERVISOR advanced diet to clear liquids and advised to encourage patient to drink adequate amount of water.Patient passed bedside dysphagia test earlier in the night. Will monitor patient swallowing status each time water is given. Patient continues to be anxious, pulling at lines and such. Precedex was resumed at 2100 but will decrease a bit so patient can safely drink water.
[2019-06-26] VITALS (22 sets, daily range): BP systolic 84–136; BP diastolic 42–92
[2019-06-26] MEDS: LACTULOSE 20 GM/30 ML UDCUP PO SCH ×2 (00:32→11:44)
[2019-06-26 00:37] LABS: MAGNESIUM 2.2 mg/dL (1.80-2.40); POTASSIUM 3.8 mmol/L (3.5-5.1)
[2019-06-26] MEDS: INSULIN HUMULIN R 100 UNIT/ML 3ML SQ SCH ×5 (00:42→20:20)
[2019-06-26] MEDS: POTASSIUM CHLORIDE 10MEQ/100ML 100 ML IV PRN ×2 (00:54→06:31)
[2019-06-26 06:15] LABS: MAGNESIUM 2.6 mg/dL (1.80-2.40); POTASSIUM 3.5 mmol/L (3.5-5.1)
[2019-06-26 06:21] LABS: CREATININE 8.5 mg/dL (0.5-1.5)
[2019-06-26] MEDS: FAMOTIDINE/PF 20 MG/2 ML VIAL IV SCH (08:39)
[2019-06-26] MEDS: MIDODRINE HCL 5 MG TABLET PO SCH ×3 (08:40→21:16)
[2019-06-26] MEDS: RIFAXIMIN 550 MG TABLET PO SCH ×2 (08:40→21:16)
[2019-06-26] MEDS: ZOSYN 3.375GM+NS 50ML 50 ML IV SCH ×2 (08:40→21:16)
[2019-06-26] MEDS: POTASSIUM CHLORIDE 20 MEQ in DEXTROSE 5%-WATER 1,000 ML IV SCH (09:05)
--- NOTE | 2019-06-26 09:30 | NUR ---
Nutrition Follow-up: Pt. S/P extubation. Pt. on Clear Liquid diet this morning and advanced to Renal Non Dialysis Hepatic starting with lunch meal today. As per nurse Jodee, pt. only drank water this morning. Nurse reports pt. with no swallowing issues at this time. Labs reviewed(Alb 2.3, BUN 96, Creat 8.5, GFR 7, BG 226, Ammonia 17). LBM: 06/26/19, loose. SR-12, jaundice. Recommendations: 1) Rec. 75gm CCD Renal Non Dialysis diet. 2) Rec. Suplena QD with lunch meal. 3) Continue to monitor pt's nutritional status. 4) Consult RD as nutrition concerns arise. Addendum: 06/26/19 at [address] Amended: Links added.
[2019-06-26 12:17] LABS: MAGNESIUM 2.2 mg/dL (1.80-2.40); POTASSIUM 3.6 mmol/L (3.5-5.1)
[2019-06-26] MEDS: DEXTROSE 5%-WATER 1,000 ML IV SCH (13:33)
[2019-06-26] MEDS: POTASSIUM CHLORIDE 10% ELIXIR 20 MEQ/15 ML UDCUP PO PRN ×2 (13:50→16:02)
[2019-06-26] MEDS ORDERED: GLUCAGON 1MG KIT 1 MG ML IM PRN (17:15)
[2019-06-26] MEDS ORDERED: DEXTROSE 50%-WATER 50 ML DISP.SYRIN IV PRN (17:15)
--- NOTE | 2019-06-26 18:10 | NUR ---
Report given to JAVON Patel, and patient moved to room 325; sister made aware
--- NOTE | 2019-06-26 18:30 | NUR ---
TRANSFERRED FROM 215 PATIENT IS AAOX1, HAS D5/20KCL INFUSING AT 70ML/HR TO LAC 20G. RECTAL TUBE PRESENT, F/C PRESENT. TELEMETRY MONITORING. ROOM AIR NO SIGNS OF RESPIRTORY DISTRESS NOTED. NO SIGNS OF DISTRESS NOTED.
[2019-06-26 18:33] LABS: POTASSIUM 3.9 mmol/L (3.5-5.1)
[2019-06-27] MEDS: LACTULOSE 20 GM/30 ML UDCUP PO SCH ×2 (01:10→12:15)
[2019-06-27] MEDS: POTASSIUM CHLORIDE 20 MEQ in DEXTROSE 5%-WATER 1,000 ML IV SCH ×2 (03:29→17:55)
[2019-06-27] MEDS: DEXTROSE 5%-WATER 1,000 ML IV SCH ×2 (03:51→18:09)
[2019-06-27 03:56] VITALS: BP 108/71
[2019-06-27] MEDS: INSULIN HUMULIN R 100 UNIT/ML 3ML SQ SCH ×4 (06:11→21:10)
[2019-06-27 06:34] LABS: BASOPHILS % (AUTO) 0.5 % (0.0-5.0); EOSINOPHILS % (AUTO) 1.3 % (0.0-8.0); HEMATOCRIT 31.8 % (42-54); LYMPHOCYTES % (AUTO) 12.9 % (21.0-51.0); MEAN CORPUSCULAR HEMOGLOBIN 35.4 pg (27.0-33.0); MEAN CORPUSCULAR VOLUME 104.2 fL (79-99); MONOCYTES % (AUTO) 4.3 % (3.0-13.0); NUCLEATED RED BLOOD CELLS 0.6 % (0.0-0.19); PLATELET COUNT (AUTO) 45 K/uL (130-400); RED BLOOD CELL COUNT(AUTO) 3.05 MIL/uL (4.50-6.20); WHITE BLOOD COUNT (AUTO) 17.5 K/uL (4.8-10.8)
[2019-06-27 06:48] LABS: PHOSPHORUS 5.4 mg/dL (2.5-4.9); POTASSIUM 4.2 mmol/L (3.5-5.1)
[2019-06-27 06:50] LABS: CREATININE 8.2 mg/dL (0.5-1.5)
[2019-06-27 07:56] VITALS: BP 100/49
[2019-06-27] MEDS: ZOSYN 3.375GM+NS 50ML 50 ML IV SCH ×2 (08:22→21:15)
[2019-06-27] MEDS: FAMOTIDINE/PF 20 MG/2 ML VIAL IV SCH (08:22)
[2019-06-27] MEDS: RIFAXIMIN 550 MG TABLET PO SCH ×2 (08:22→21:15)
[2019-06-27] MEDS: MIDODRINE HCL 5 MG TABLET PO SCH ×3 (08:22→21:15)
[2019-06-27 11:16] VITALS: BP 91/49
[2019-06-27 15:49] VITALS: BP 93/47
--- NOTE | 2019-06-27 18:27 | NUR ---
DR QUINONEZ PAGED DR NUNES PAGED REGARDING PT RECTAL BLEEDING X 1 EPISODE, PENDING CALL BACK
[2019-06-27 19:00] VITALS: BP 91/43
--- NOTE | 2019-06-27 19:05 | NUR ---
DR POTTER RETURNED CALL LOAN PROCESSING SUPERVISOR FOR DEEPTI POTTER STATED CALL BENCHMARK TEAM WHO PLACED TUBE.
--- NOTE | 2019-06-27 19:45 | NUR ---
FREDRICK GORDILLO N.P. CALLED BACK AND WAS INFORMED OF RECTAL BLEED, PATIENT ON LACTULOSE 30GM BID AND LARGE AMOUNTS OF GREEN, WATERY STOOLS. NEW ORDER GIVEN TO DC RECTAL TUBE, DECREASED LACTULOSE TO ONCE DAILY AND TO COLLECT STOOL FOR C DIFF.
[2019-06-27 23:00] VITALS: BP 117/70
--- NOTE | 2019-06-27 23:00 | NUR ---
PRIOR TO RECTAL TUBE DC, NOTED BLEEDING WITH SMALL, STRINGY BLOOD CLOTS AROUND RECTUM AREA. PENDING TO COLLECT STOOL FOR C DIFF. WILL CONTINUE TO MONITOR.
[2019-06-28] VITALS (12 sets, daily range): BP systolic 85–134; BP diastolic 48–88
[2019-06-28] MEDS ORDERED: MIDODRINE HCL 5 MG TABLET PO SCH (03:15)
--- NOTE | 2019-06-28 03:15 | NUR ---
CALLED DR. POTTER ON-CALL TO INFORM OF LOW B/P 85/54, MAP 57. NEW ORDER GIVEN FOR EXTRA DOSE OF MIDODRINE 20MG PO X1 DOSE NOW. WILL CONTINUE TO MONITOR.
[2019-06-28 05:03] LABS: BASOPHILS % (AUTO) 1.3 % (0.0-5.0); HEMATOCRIT 29.1 % (42-54); LYMPHOCYTES % (AUTO) 15.3 % (21.0-51.0); MEAN CORPUSCULAR HGB CONC 34.5 g/dL (32.0-36.0); MEAN CORPUSCULAR VOLUME 104.3 fL (79-99); MONOCYTES % (AUTO) 6.2 % (3.0-13.0); NEUTROPHILS % (AUTO) 76.2 % (40.0-77.0); NUCLEATED RED BLOOD CELLS 0.8 % (0.0-0.19); PLATELET COUNT (AUTO) 45 K/uL (130-400); RED BLOOD CELL COUNT(AUTO) 2.79 MIL/uL (4.50-6.20); WHITE BLOOD COUNT (AUTO) 15.9 K/uL (4.8-10.8)
[2019-06-28 05:19] LABS: POTASSIUM 4.4 mmol/L (3.5-5.1)
[2019-06-28 05:28] LABS: CREATININE 8.6 mg/dL (0.5-1.5)
[2019-06-28] MEDS: INSULIN HUMULIN R 100 UNIT/ML 3ML SQ SCH ×4 (05:59→22:22)
[2019-06-28 07:52] LABS: INR 1.6 (0.85-1.15); PROTHROMBIN TIME 16.5 SEC (9.6-11.6)
--- NOTE | 2019-06-28 07:55 | NUR ---
DC RECTAL TUBE-NO STOOL OUTPUT NOTED SINCE RECTAL TUBE WAS DC'D LAST NOC. WILL CONTINUE TO MONITOR. DR. QUINONEZ WAS MADE AWARE WHEN HE CAME IN EARLIER THIS AM. NEW ORDER WAS GIVEN FOR A PARACENTESIS TODAY AND LABS FOR TOMORROW AM.
[2019-06-28] MEDS: POTASSIUM CHLORIDE 20 MEQ in DEXTROSE 5%-WATER 1,000 ML IV SCH (08:08)
[2019-06-28] MEDS: DEXTROSE 5%-WATER 1,000 ML IV SCH (08:08)
[2019-06-28] MEDS: MIDODRINE HCL 5 MG TABLET PO SCH ×3 (08:19→22:02)
[2019-06-28] MEDS: RIFAXIMIN 550 MG TABLET PO SCH ×2 (08:19→22:02)
[2019-06-28] MEDS: FOLIC ACID/VITAMIN B COMP W-C 1 MG CAP/TAB PO SCH (08:19)
[2019-06-28] MEDS: FAMOTIDINE/PF 20 MG/2 ML VIAL IV SCH (08:20)
[2019-06-28] MEDS: ZOSYN 3.375GM+NS 50ML 50 ML IV SCH ×2 (08:20→22:02)
[2019-06-28] MEDS ORDERED: LACTULOSE 20 GM/30 ML UDCUP PO SCH (09:00)
--- NOTE | 2019-06-28 10:34 | NUR ---
TELEPHONE CONSENT RECEIVED CALL PLACED TO JAY JAY SOMMER/SISTER REGARDING CONSENT FOR ABD PARACENTESIS. CONSENT RECEIVED WITH WITNESS Lashell PHAN RN
--- NOTE | 2019-06-28 11:25 | NUR ---
U/S GD PARACENTESIS PROCEDURE PERFORMED BY DR. MEANS. PUNCTURE SITE RIGHT LOWER QUADRANT OF ABDOMEN AND PATIENT TOLERATED PROCEDURE WELL. TOTAL REMOVED 10.5 LITERS OF CLOUDY BROWN COLORED ASCITES FLUID. END OF PROCEDURE AT 1205. CATHETER REMOVED AND DRESSING APPLIED. ALBUMIN 25% 50 GRAMS ORDERED FOR PROCEDURE PER [facility] ALBUMIN PROTOCOL. NO BLEEDING NOTED. DISCHARGE INSTRUCTIONS GIVEN TO PATIENT. PATIENT VERBALIZED UNDERSTANDING. AAO X3 WITH NO C/O PAIN. SPECIMEN SENT TO LAB. Addendum: 06/28/19 at 1236 by NICHOLAS BROWN RN RN U/S GD PARACENTESIS PROCEDURE PERFORMED BY DR. MEANS. PUNCTURE SITE RIGHT LOWER QUADRANT OF ABDOMEN AND PATIENT TOLERATED PROCEDURE WELL. TOTAL REMOVED 10.5 LITERS OF CLOUDY BROWN COLORED ASCITES FLUID. END OF PROCEDURE AT 1205. CATHETER REMOVED AND DRESSING APPLIED. ALBUMIN 25% 50 GRAMS ORDERED FOR PROCEDURE PER [facility] ALBUMIN PROTOCOL. NO BLEEDING NOTED. DISCHARGE INSTRUCTIONS GIVEN TO PATIENT. PATIENT VERBALIZED UNDERSTANDING. AAO X1, NOTED TO BE PULLING AT LINES DURING PROCEDURE AND HAS TO BE REDIRECTED, NO C/O PAIN. SPECIMEN SENT TO LAB.
--- NOTE | 2019-06-28 11:30 | NUR ---
DYSPHAGIA EVAL COMPLETED. -S/S OF ASPIRATION. RECOMMEND REGULAR TEXTURE, THIN LIQUIDS; PILLS WHOLE WITH LIQUIDS. Addendum: 06/28/19 at 1241 by ALEX WALKER, [facility] Amended: Links added.
[2019-06-28] MEDS ORDERED: ALBUMIN (HUMAN) 25% 200 ML IV SCH (12:00)
--- NOTE | 2019-06-28 12:35 | NUR ---
POST PARACENTESIS PT RECEIVED POST PARACENTESIS AT THIS TIME. BP 111/55 P 76 R 20 O2 98 T 98.9. PT IN NO DISTRESS AT THIS TIME. GAUZE WITH OPSITE TO RLQ. NO BLEEDING NOTED. WILL CONT TO MONITOR
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
--- NOTE | 2019-06-28 14:05 | NUR ---
CM NOTE FROM 1359 ON WRONG PT!!!
[2019-06-28] MEDS: OCTREOTIDE ACETATE 100 MCG/ML AMP SQ SCH ×2 (14:49→22:02)
--- NOTE | 2019-06-28 15:35 | NUR ---
[facility] CONSULT PATIENT ASSESSED REQUESTED: PATIENT PRESENTS WITH STAGE II PRESSURE ULCER TO COCCYX; [facility] RECOMMENDATIONS SUBMITTED. Addendum: 06/28/19 at 1536 by CARISSA MOSES LVN LVN W Amended: Links added.
[2019-06-28 16:06] LABS: BF LYMPHOCYTE 86 %; BF MESOTHELIAL 4 %; BF MONOCYTE 1 %
[2019-06-28 16:07] LABS: SPECIMENTYPE,BODY FLUID ASCITES
[2019-06-28 16:08] LABS: APPEARANCE BODY FLUID CLEAR (CLEAR); COLOR,BODY FLUID YELLOW (LT YELLOW); TOTAL VOLUME,BODY FLUID 1050 mL
[2019-06-28 16:10] LABS: BODY FLUID WBC 53 /cu. mm.
[2019-06-28 16:11] LABS: BODY FLUID RBC 279 /cu. mm.
--- NOTE | 2019-06-28 18:45 | NUR ---
DR QUINONEZ PAGED DR QUINONEZ PAGED REGARDING NEED FOR CDIFF STOOL COLLECTION BUT PT ON LACTULOSE- LAB INFORMED SPECIMEN WAS UNACCEPTABLE. PER DR QUINONEZ OK TO HOLD LACTULOSE UNTIL NEW SPECIMEN RECEIVED. NOTED AND CARRIED OUT
[2019-06-28] MEDS: LACTULOSE 20 GM/30 ML UDCUP PO SCH (21:00)
--- NOTE | 2019-06-28 22:25 | NUR ---
MEDS HELD LACTULOSE INSTRUCTED BY LAB IN ORDER TO BE ABLE TO COLLECT STOOL REQUESTED BY DR. QUINONEZ.
[2019-06-29] MEDS: DEXTROSE 5%-WATER 1,000 ML IV SCH ×3 (02:08→20:53)
[2019-06-29 03:54] VITALS: BP 100/45
[2019-06-29 05:46] LABS: HEMATOCRIT 27.7 % (42-54); MEAN CORPUSCULAR HGB CONC 34.8 g/dL (32.0-36.0); MEAN CORPUSCULAR VOLUME 103.3 fL (79-99); NUCLEATED RED BLOOD CELLS 0.3 % (0.0-0.19); PLATELET COUNT (AUTO) 38 K/uL (130-400); RED BLOOD CELL COUNT(AUTO) 2.68 MIL/uL (4.50-6.20); RED CELL DISTRIBUTION WIDTH 14.4 % (11.0-15.5); WHITE BLOOD COUNT (AUTO) 9.2 K/uL (4.8-10.8)
[2019-06-29 06:03] LABS: ALBUMIN 1.8 g/dL (3.5-5.0); BILIRUBIN,TOTAL 2.7 mg/dL (0.2-1.0); PHOSPHORUS 6.4 mg/dL (2.5-4.9); POTASSIUM 4.2 mmol/L (3.5-5.1); TOTAL PROTEIN, SERUM 5.8 g/dL (6.0-8.3)
[2019-06-29 06:07] LABS: CREATININE 8.1 mg/dL (0.5-1.5)
[2019-06-29] MEDS: INSULIN HUMULIN R 100 UNIT/ML 3ML SQ SCH ×5 (06:30→21:00)
--- NOTE | 2019-06-29 06:45 | NUR ---
NOTE DR. QUINONEZ HERE TO SEE PATIENT. SPOKE WITH HIM. REVIEWED LABS FOR THIS AM. PATIENT DENIES ANY PAIN AT THIS TIME. ORDERS RECEIVED AND ENTERED IN COMPUTER.
[2019-06-29] MEDS: OCTREOTIDE ACETATE 100 MCG/ML AMP SQ SCH ×3 (06:59→20:58)
[2019-06-29 07:00] VITALS: BP 100/54
[2019-06-29 08:00] VITALS: BP 100/54
[2019-06-29] MEDS: LACTULOSE 20 GM/30 ML UDCUP PO SCH ×3 (09:00→21:00)
[2019-06-29] MEDS: RIFAXIMIN 550 MG TABLET PO SCH ×2 (09:20→20:58)
[2019-06-29] MEDS: FOLIC ACID/VITAMIN B COMP W-C 1 MG CAP/TAB PO SCH (09:20)
[2019-06-29] MEDS: MIDODRINE HCL 5 MG TABLET PO SCH ×3 (09:21→20:58)
[2019-06-29] MEDS: FAMOTIDINE/PF 20 MG/2 ML VIAL IV SCH (09:21)
[2019-06-29] MEDS: ZOSYN 3.375GM+NS 50ML 50 ML IV SCH ×2 (09:21→20:53)
--- NOTE | 2019-06-29 10:57 | NUR ---
SANTIAGO REMOVED SANTIAGO REMOVED PER DR QUINONEZ ORDERS. 16 FR REMOVED VIA ASEPTIC TECHNIQUE 10CC WATER REMOVED FROM BALLOON. PT TOLERATED WELL. STATED FEELING RELIEF. WILL CONT TO MONITOR
[2019-06-29 12:00] VITALS: BP 81/46
--- NOTE | 2019-06-29 12:36 | NUR ---
REFUSED P.O. Pt REFUSING P.O. AT THIS TIME. Pt NOT WANTING TO PARTICIPATE AT THIS TIME. NO SKILLED SPEECH THERAPY PROVIDED AT THIS TIME. Addendum: 06/29/19 at 1240 by ALEX WALKER, [facility] ST Amended: Links added.
--- NOTE | 2019-06-29 14:45 | NUR ---
DR QUINONEZ PAGED DR QUINONEZ PAGED REGARDING FAMILY PRESENT AT THIS TIME. PENDING CALL BACK
--- NOTE | 2019-06-29 15:21 | NUR ---
MICHELLE NOTIFICATION/ FOLLOW UP DIET: RENAL NON-DIALYSIS, 75GMCCD, HEPATIC DIET. SUPLENA BID. PO INTAKE 0-25% AND HAS POOR APPETITE. PT UNABLE TO FEED SELF DURING TIME OF VISIT. PT WITH AMS. PT ONLY DRINKING WATER. PT WITH HISTORY OF HAVING DIARRHEA DURING ADMISSION. NO EDEMA, LEFT COCCYX ULCER PRESENT. PT WITH ASCITES, S/P PARACENTESIS. PT IS A POOR CANDIDATE FOR DIALYSIS PER DR NOTE. RD RECOMMENDS BOWEL REST. CHANGE DIET ORDER TO NPO. RECOMMEND GI CONSULT. PT NOT ABLE TO TOLERATE FEEDINGS. PT UNABLE TO FEED SELF -AMS. RD WILL CONTINUE TO MONITOR AND FOLLOW UP NEEDED. THANK YOU. MONITOR LABS: Lipase 1292, Na 135, Cl 97, BUN 100, CRE 8.1, GFR 7, BG 160, PHOS 6.4, ALB 1.8 Addendum: 06/29/19 at [address] Amended: Links added.
[2019-06-29 16:00] VITALS: BP 93/53
[2019-06-29 20:02] VITALS: BP 104/58
[2019-06-30] VITALS (13 sets, daily range): BP systolic 63–126; BP diastolic 30–75
[2019-06-30 05:23] LABS: CREATININE 7.7 mg/dL (0.5-1.5); POTASSIUM 4.4 mmol/L (3.5-5.1)
[2019-06-30 06:08] LABS: BASOPHILS % (AUTO) 1.1 % (0.0-5.0); EOSINOPHILS % (AUTO) 1.5 % (0.0-8.0); HEMATOCRIT 25.3 % (42-54); LYMPHOCYTES % (AUTO) 13.3 % (21.0-51.0); MEAN CORPUSCULAR HEMOGLOBIN 36.3 pg (27.0-33.0); MEAN CORPUSCULAR HGB CONC 35.3 g/dL (32.0-36.0); MONOCYTES % (AUTO) 5.3 % (3.0-13.0); NEUTROPHILS % (AUTO) 78.8 % (40.0-77.0); NUCLEATED RED BLOOD CELLS 0.6 % (0.0-0.19); PLATELET COUNT (AUTO) 51 K/uL (130-400); RED BLOOD CELL COUNT(AUTO) 2.45 MIL/uL (4.50-6.20); RED CELL DISTRIBUTION WIDTH 13.8 % (11.0-15.5)
[2019-06-30] MEDS: INSULIN HUMULIN R 100 UNIT/ML 3ML SQ SCH ×4 (06:32→21:00)
[2019-06-30] MEDS: OCTREOTIDE ACETATE 100 MCG/ML AMP SQ SCH ×4 (06:34→22:15)
--- NOTE | 2019-06-30 06:35 | NUR ---
NOTE DR. QUINONEZ HERE. UPDATED ON PATIENT'S CONDITION, DISTENDED ABDOMEN, LAB RESULTS. PROVIDED HIM WITH NUMBERS FOR BOTH SISTERS FOR HIM TO CONTACT TO SPEAK ABOUT PLAN OF CARE. ORDERS RECEIVED AND ENTERED IN COMPUTER.
[2019-06-30] MEDS ORDERED: ZINC OXIDE OINT 114 GM TUBE TP SCH (09:00)
[2019-06-30] MEDS: ZINC OXIDE OINT 60GM TUBE TP SCH ×2 (09:26→22:17)
[2019-06-30] MEDS: HONEY 1 APPL/ML TUBE TP SCH (09:26)
[2019-06-30] MEDS: FAMOTIDINE/PF 20 MG/2 ML VIAL IV SCH (09:35)
[2019-06-30] MEDS: ZOSYN 3.375GM+NS 50ML 50 ML IV SCH ×2 (09:35→22:18)
[2019-06-30] MEDS: RIFAXIMIN 550 MG TABLET PO SCH ×3 (09:36→22:16)
[2019-06-30] MEDS: LACTULOSE 20 GM/30 ML UDCUP PO SCH ×4 (09:36→22:15)
[2019-06-30] MEDS: FOLIC ACID/VITAMIN B COMP W-C 1 MG CAP/TAB PO SCH (09:36)
[2019-06-30] MEDS: MIDODRINE HCL 5 MG TABLET PO SCH ×4 (09:36→22:16)
--- NOTE | 2019-06-30 10:43 | NUR ---
TELEPHONE CONSENT RECEIVED TELEPHONE CONSENT RECEIVEDFROM JAY JAY SOMMER/SISTER. WITNESS WAS RADHA ALEJANDRO.
--- NOTE | 2019-06-30 10:58 | NUR ---
HOLD Pt CURRENTLY NPO FOR A PROCEDURE. Addendum: 06/30/19 at 1105 by ALEX WALKER, [facility] ST Amended: Links added.
--- NOTE | 2019-06-30 12:15 | NUR ---
U/S GD PARACENTESIS PROCEDURE PERFORMED BY DR. MEANS. PUNCTURE SITE LEFT LOWER QUADRANT OF ABDOMEN AND PATIENT TOLERATED PROCEDURE WELL. TOTAL REMOVED 4 LITERS OF CLOUDY BROWN COLORED ASCITES FLUID. END OF PROCEDURE AT 1155. CATHETER REMOVED AND DRESSING APPLIED. NO BLEEDING NOTED. DISCHARGE INSTRUCTIONS GIVEN TO PATIENT. PATIENT VERBALIZED UNDERSTANDING. AAO X3 WITH NO C/O PAIN. -
--- NOTE | 2019-06-30 12:25 | NUR ---
PT RETURNED FROM PARA PT RETURNED IN NO DISTRESS. GAUZE AND OP SITE TO LLQ. POST OP VS IN PLACE. WILL CONT TO MONITOR
[2019-06-30] MEDS: ALBUMIN (HUMAN) 25% 100 ML IV SCH ×2 (15:30→22:15)
[2019-06-30] MEDS ORDERED: PHARMACY COMMUNICATION MISC SCH (15:45)
--- NOTE | 2019-06-30 16:00 | NUR ---
HOSPICE INTITIATION UPDATED BY PRIMARY RN- STATES SISTERS HERE- HAVE TALKED TO DR. QUINONEZ WHO GIVE THE PATIENT "DAYS" TO LIVE , SISTERS TELL RN THAT THEY HAVE BAD EXPERIENCE WITH HOSPICE, WANT PT TO STAY IN HOSPICE RASHAUN DISCUSSED DC PLAN W SISTER, EXPLAINED DOES NOT QUALIFY FOR [facility], MAY BE PLACED AT A LONGTERM WITH [facility] IF TAKING HIM HOME IS UNABLE TO BE DONE. SISTERS STATES [facility] WOULD BE THEIRE CHOICE. PT IS INCOHERENT, 'JUST WANT TO LEAVE FOR TWO DAYS' REACHED OUT TO DIRECTOR FOR NAME OF HOSPICE TO APPROACH FOR [facility]. Addendum: 06/30/19 at 1744 by LINWOOD ROQUE RN CM Amended: Links added.
[2019-06-30] MEDS: DEXTROSE 5%-WATER 1,000 ML IV SCH (17:43)
[2019-06-30] MEDS ORDERED: METF-446 PO (18:49)
[2019-06-30] MEDS ORDERED: LEVO75TA10 PO (18:49)
[2019-06-30] MEDS ORDERED: CEPH500C2 PO (18:53)
[2019-06-30] MEDS ORDERED: FERR325T22 PO (18:53)
[2019-06-30] MEDS ORDERED: LEVO750T46 PO (18:53)
[2019-06-30] MEDS ORDERED: ALEN70TA10 PO (18:53)
[2019-07-01] MEDS: DEXTROSE 5%-WATER 1,000 ML IV SCH (04:28)
[2019-07-01 05:00] VITALS: BP 125/72
[2019-07-01] MEDS: OCTREOTIDE ACETATE 100 MCG/ML AMP SQ SCH ×2 (05:14→14:00)
[2019-07-01 05:45] LABS: HEMATOCRIT 26.5 % (42-54); MEAN CORPUSCULAR HEMOGLOBIN 35.7 pg (27.0-33.0); MEAN CORPUSCULAR HGB CONC 35.1 g/dL (32.0-36.0); MEAN CORPUSCULAR VOLUME 101.8 fL (79-99); NUCLEATED RED BLOOD CELLS 0.3 % (0.0-0.19); PLATELET COUNT (AUTO) 65 K/uL (130-400); RED BLOOD CELL COUNT(AUTO) 2.61 MIL/uL (4.50-6.20); WHITE BLOOD COUNT (AUTO) 11.4 K/uL (4.8-10.8)
[2019-07-01 06:03] LABS: ALBUMIN 2.2 g/dL (3.5-5.0); POTASSIUM 3.4 mmol/L (3.5-5.1); TOTAL PROTEIN, SERUM 6.3 g/dL (6.0-8.3)
[2019-07-01] MEDS: INSULIN HUMULIN R 100 UNIT/ML 3ML SQ SCH ×3 (06:07→16:30)
[2019-07-01 07:00] VITALS: BP 106/58
[2019-07-01] MEDS: ZINC OXIDE OINT 60GM TUBE TP SCH (10:42)
[2019-07-01] MEDS: HONEY 1 APPL/ML TUBE TP SCH (10:42)
[2019-07-01] MEDS: RIFAXIMIN 550 MG TABLET PO SCH (10:42)
[2019-07-01] MEDS: MIDODRINE HCL 5 MG TABLET PO SCH ×2 (10:45→14:00)
[2019-07-01] MEDS: LACTULOSE 20 GM/30 ML UDCUP PO SCH ×2 (10:45→14:00)
[2019-07-01] MEDS: FOLIC ACID/VITAMIN B COMP W-C 1 MG CAP/TAB PO SCH (10:45)
[2019-07-01] MEDS: FAMOTIDINE/PF 20 MG/2 ML VIAL IV SCH (10:45)
[2019-07-01 11:00] VITALS: BP 122/63
[2019-07-01] MEDS: ZOSYN 3.375GM+NS 50ML 50 ML IV SCH (11:06)
--- NOTE | 2019-07-01 12:33 | NUR ---
[facility] ALL TO DIRECTOR- SUGGESTED [facility] PT OF CALL TO DR. QUINONEZ, ADISED OF FAMILY DECISION TO TAKE PT HOME W HOSPICE DR. QUINONEZ SAID [facility]. CALL TO [facility] & REFERRAL FAXED. WAITING CALL BACK Addendum: 07/01/19 at 1515 by LINWOOD ROQUE RN ABBY FOR [facility] IN CHART FORM SISTER AT [facility] AND VERBAL CONSENT FROM PATIENT
--- NOTE | 2019-07-01 15:21 | NUR ---
PT REFUSING MEDS PT REFUSING TO TAKE MEDS X3. PT STATES HE DOES NOT NEED THEM AND TO "JUST LET ME ". SISTERS AT BEDSIDE AND AWARE OF SITUATION
--- NOTE | 2019-07-01 19:22 | NUR ---
REPORT CALLED TO [facility] REPORT CALLED TO ADI ALEJANDRO OF [facility]
== END 2019-07-01 20:20 | disposition hospice, home (50) | DRG 871 ==
LOC: EDH 22:43 → EDHIP 22:44 → 2DH 06-21 02:48 → EDHIP 06-21 02:51 → 2CH 06-21 08:55 → 3DH 06-26 18:37
PROVIDERS: ADMIT Internal Medicine; ATTEND Internal Medicine
PROC: 0BH17EZ Insertion of Endotracheal Airway into Trachea, Via Natural or Artificial Opening (ICD-10-PCS; principal; 2019-06-21)
PROC: 5A1945Z Respiratory Ventilation, 24-96 Consecutive Hours (ICD-10-PCS; 2019-06-21)
PROC: 02HV33Z Insertion of Infusion Device into Superior Vena Cava, Percutaneous Approach (ICD-10-PCS; 2019-06-24)
DX: A41.9 Sepsis, unspecified organism (principal); G93.41 Metabolic encephalopathy; K76.7 Hepatorenal syndrome; J96.21 Acute and chronic respiratory failure with hypoxia; E87.1 Hypo-osmolality and hyponatremia; N17.9 Acute kidney failure, unspecified; R64 Cachexia; E87.2 Acidosis; E46 Unspecified protein-calorie malnutrition; E87.0 Hyperosmolality and hypernatremia; E87.4 Mixed disorder of acid-base balance; J90 Pleural effusion, not elsewhere classified; J98.11 Atelectasis; K92.2 Gastrointestinal hemorrhage, unspecified; R18.8 Other ascites; K72.90 Hepatic failure, unspecified without coma; K74.60 Unspecified cirrhosis of liver; E87.5 Hyperkalemia; D64.9 Anemia, unspecified; D69.6 Thrombocytopenia, unspecified; E11.22 Type 2 diabetes mellitus with diabetic chronic kidney disease; E86.0 Dehydration; I12.9 Hypertensive chronic kidney disease with stage 1 through stage 4 chronic kidney disease, or unspecified chronic kidney disease; M19.90 Unspecified osteoarthritis, unspecified site; M62.84 Sarcopenia; N18.9 Chronic kidney disease, unspecified; Z51.5 Encounter for palliative care; Z66 Do not resuscitate; Z79.4 Long term (current) use of insulin; Z91.19 Patient's noncompliance with other medical treatment and regimen
CPT/HCPCS: 31500; 36415; 36600; 49083; 70450; 71045; 71250; 76705; 80048; 80053; 80076; 81001; 82010; 82140; 82270; 82550; 82803; 82948; 83605; 83690; 83735; 83880; 83935; 84100; 84132; 84300; 84484; 85025; 85027; 85610; 85730; 87040; 87071; 87205; 89051; 92610; 93005; 94002; 94003; 94640; 97039; 99291; 99292; A4330; C1751; C1894; G0378; J0610; J0696; J1815; J1956; J2250; J2354; J2405; J2543; J2704; J3475; J3480; J3490; J7030; J7070; P9046; P9047